=== PATIENT | female | born 1950 | race Caucasian/White ===

== ENCOUNTER → 2016-08-20 | Outpatient (REF) | payer MEDICARE ==
[~2016-08-20] MED LIST: AMOX500C5 PO; AMT25T PO; BUDE10.2 INH; CLOP75TA3 PO; DIAZ10TA PO; DIPH25CA79 PO; FLUT1DIS3 IH; HYDR-700 PO; LISI2.5T PO; METF500T PO; METO25TA2 PO; NITR100C3 PO; ONDA8TAB9 PO; PRAV40TA2 PO; PRCD5U PO; PRED20TA PO; RANI150T15 PO; TRM50T PO
[2016-08-20 15:43] LABS: ALBUMIN 4.2 g/dL (3.4-5.0); ANION GAP 19.5 MEQ/L (3-15); CALCULATED IONIZED CALCIUM 4.4 mg/dL (3.8-4.6); TOTAL PROTEIN 6.8 g/dL (6.4-8.5)
== END ==
LOC: LAB 14:19
PROVIDERS: ATTEND Nurse Practitioner Family
DX: E11.9 Type 2 diabetes mellitus without complications (principal); E78.2 Mixed hyperlipidemia; N30.00 Acute cystitis without hematuria
CPT/HCPCS: 80053; 80061; 83036; 87077; 87088; 87186

== ENCOUNTER → 2016-09-17 | Outpatient (CLI) | payer MEDICARE ==
[2016-09-17 14:08] LABS: BILIRUBIN,URINE Negative (Negative); CLARITY,URINE Clear; COLOR,URINE Yellow; GLUCOSE, URINE (UA) Negative (Negative); LEUKOCYTE ESTERASE, URINE Negative (Negative)
[2016-09-17 15:06] LABS: RBC,URINE 0-2 /HPF; URINE CENTRIFUGED VOLUME 12 mL
== END ==
LOC: LAB 13:43
PROVIDERS: ATTEND Nurse Practitioner Family
DX: N39.0 Urinary tract infection, site not specified (principal)
CPT/HCPCS: 81003; 81015; 87088

== ENCOUNTER → 2016-12-06 | Outpatient (REF) | payer MEDICARE ==
[2016-12-06 15:41] LABS: ANION GAP 16.8 MEQ/L (3-15)
== END ==
LOC: LAB 15:09
PROVIDERS: ATTEND Nurse Practitioner Family
DX: E11.9 Type 2 diabetes mellitus without complications (principal)
CPT/HCPCS: 80048; 83036